=== PATIENT | female | born 1965 | race Hispanic/Latino ===

== ENCOUNTER 2018-01-03 19:13 | Emergency (ER) | payer MEDICARE, MEDICAID ==
--- NOTE | 2018-01-03 19:30 | CT ---
CT BRAIN NONCONTRAST: 01/03/2018 7:20 p.m. HISTORY: A 52-year-old female with dysarthria. This negative stroke alert protocol CT report was called to ER physician, Dr. Núñez, at 7:25 p.m., on 01/03/2018. FINDINGS: There is no midline shift or any other mass effect. There is no evidence of acute intracranial hemor rhage, large cortical infarct, obstructive hydrocephalus, or extraaxial fluid collection. The calvar ium is intact. IMPRESSION: No acute intracranial findings. CODE CR jn [] POS: [facility]
[2018-01-03 20:02] LABS: #Basophils 0.1 thou/uL (0.0-0.2); #Eosinphils 0.1 thou/uL (0.0-0.7); #Lymphocytes 3.4 thou/uL (1.20-3.40); #Monocytes 0.4 thou/uL (0.11-0.59); #Neutrophils 4.5 thou/uL (1.40-6.50); %Basophils 1.5 % (0.0-1.0); %Eosinophils 1.1 % (0.0-10.0); %Monocytes 4.2 % (0.0-10.0); %Neutrophils 53.2 % (42.0-75.0); Hemoglobin 16.5 g/dL (12.0-16.0); Mean Corpuscular HGB CONC 36.3 g/dL (32.0-36.0); Mean Corpuscular Hemoglobin 33.4 pg (27.0-31.0); Mean Corpuscular Volume 92.1 fL (78.0-98.0); Mean Platelet Volume 7.9 fL (7.4-10.4); Platelet Count 200 thou/uL (130-400); RBC Distribution Width 12.6 % (11.5-14.5); Red Blood Cell (RBC) Count 4.92 mill/uL (4.20-5.40); White Blood Cell (WBC) Count 8.4 thou/uL (4.8-10.8)
[2018-01-03 20:08] LABS: Prothrombin Time 13.5 SEC (12.0-14.7)
--- NOTE | 2018-01-03 20:08 | CT ---
CT CERVICAL SPINE NONCONTRAST: HISTORY: A 52-year-old female, status post cervical trauma from fall. FINDINGS: There are no jumped or perched facets. There is no evidence of acute fracture. The vertebral body h eights are maintained. There is no prevertebral soft tissue swelling. There is a stent in the proxi mal portion of the left subclavian artery. IMPRESSION: No evidence of acute fracture or acute traumatic subluxation. jnr POS: [facility]
[2018-01-03 20:09] LABS: PTT 30.7 SEC (22.9-36.1)
--- NOTE | 2018-01-03 20:11 | RAD ---
AP VIEW CHEST: INDICATIONS: Altered mental status. COMPARISON: Prior study dated 11/22/2015. FINDINGS: The lungs are clear. The cardiomediastinal is normal. No acute osseous abnormality is evident. IMPRESSION: No acute cardiopulmonary abnormality. POS: [facility]
[2018-01-03 20:12] LABS: Bilirubin Negative (Negative); Blood, Urine Negative (Negative); Clarity CLEAR (Clear); Glucose, Urine (Dipstick) >=1000 mg/dL (Negative); Leukocyte Trace (Negative); Nitrite Positive (Negative); Protein, Urine (Dipstick) Negative (Neg-Trace); Specific Gravity, Urine 1.022 (1.002-1.036); Urobilinogen 0.2 mg/dL (0.2-1.0); pH, Urine 5.5 (5.0-9.0)
[2018-01-03 20:15] LABS: Bacteria/HPF 4+ HPF (None Seen); Hyaline Casts/LPF 0-3 HYALINE CAST LPF (0-3 Hyaline); RBC/HPF None Seen HPF (0-3); Squamous Epithelial 0-3 HPF (0-3)
[2018-01-03 20:15] LABS: Acetaminophen Less than 6.0 mcg/mL (10.0-30.0); Alcohol Less than 10 mg/dL (Less than 10); Salicylate Less than 8.0 mg/dL (15.0-30.0)
[2018-01-03 20:16] LABS: ALT (SGPT) 37 U/L (8-55); AST (SGOT) 48 U/L (5-34); Albumin 4.4 g/dL (3.5-5.0); Alkaline Phosphatase 205 U/L (40-150); Anion Gap 20 mmol/L (10-20); BUN (Urea Nitrogen) 15 mg/dL (9.8-20.1); Bilirubin, Total 0.8 mg/dL (0.2-1.2); CK (CPK) 166 U/L (29-168); Calc. Creatinine Clearance 0 mL/min (70-130); Calcium 10.2 mg/dL (7.8-10.44); Carbon Dioxide 18 mmol/L (22-29); Chloride 103 mmol/L (98-107); Estimated GFR-MDRD 48; Globulin 4.3 g/dL (2.4-3.5); Glucose 258 mg/dL (70-105); Lipase 29 U/L (8-78); Potassium 3.7 mmol/L (3.5-5.1); Protein, Total 8.7 g/dL (6.0-8.3); Sodium 137 mmol/L (136-145)
[2018-01-03 20:17] LABS: Renal Epithelial None Seen HPF (0-3); Transitional Epithelial NONE SEEN HPF (0-3)
[2018-01-03 20:18] LABS: Troponin I Less than 0.010 ng/mL (< 0.028)
[2018-01-03 20:21] LABS: CKMB 7.2 ng/mL (0-6.6)
[2018-01-03 20:24] LABS: Amphetamine Detected (NotDetected); Barbiturates Screen Not Detected (NotDetected); Benzodiazepine Screen Detected (NotDetected); Cocaine Metabolite Screen Not Detected (NotDetected); Medtox Control Line Valid? VALID (VALID); Medtox Reader # READER 1; Methadone Not Detected (NotDetected); Methamphetamine Not Detected (NotDetected); Opiate Screen Not Detected (NotDetected); Oxycodone Screen Not Detected (NotDetected); Phencyclidine (PCP) Not Detected (NotDetected); THC/Cannabinoid Screen Not Detected (NotDetected); Tricyclic Screen Not Detected (NotDetected)
== END 2018-01-03 21:33 | disposition home or self-care (01) ==
LOC: ERS 19:13
DX: S16.1XXA Strain of muscle, fascia and tendon at neck level, initial encounter (principal); F15.90 Other stimulant use, unspecified, uncomplicated; R55 Syncope and collapse; N39.0 Urinary tract infection, site not specified; E78.5 Hyperlipidemia, unspecified; F31.9 Bipolar disorder, unspecified; F17.210 Nicotine dependence, cigarettes, uncomplicated; E11.9 Type 2 diabetes mellitus without complications; Z79.899 Other long term (current) drug therapy; V89.2XXA Person injured in unspecified motor-vehicle accident, traffic, initial encounter
CPT/HCPCS: 36415; 36416; 51701; 70450; 71045; 72125; 80053; 80306; 80307; 81003; 81015; 82010; 82553; 83690; 83880; 84146; 84443; 84484; 85025; 85610; 85730; 87040; 87149; 93005; A4353

== ENCOUNTER 2018-07-21 14:00 | Outpatient (CLI) | payer MEDICARE, MEDICAID ==
[2018-07-21] MEDS ORDERED: Sodium Chloride 0.9% 15 ML NEB ONE (20:05)
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
== END 2018-07-21 14:01 | disposition home or self-care (01) ==
LOC: WCC 14:00
PROVIDERS: ATTEND Family Medicine
DX: E11.622 Type 2 diabetes mellitus with other skin ulcer (principal); L98.419 Non-pressure chronic ulcer of buttock with unspecified severity; I10 Essential (primary) hypertension; D64.9 Anemia, unspecified; M19.90 Unspecified osteoarthritis, unspecified site; E03.9 Hypothyroidism, unspecified
CPT/HCPCS: 11042; 11045; 99203; A4218; G0463

== ENCOUNTER 2018-07-28 09:49 | Outpatient (CLI) | payer MEDICARE, MEDICAID ==
[~2018-07-28 09:49] MED LIST: Sodium Chloride 0.9% 15 ML NEB ONE
--- NOTE | 2018-07-28 10:52 | PRG ---
DATE OF SERVICE: 07/28/2018 HISTORY: Ms. Aziza Daley is a very pleasant 52-year-old, who presents to the Wound Center for evaluation of an ulceration of the right buttock. The patient previously stated that she had fallen several times over the few weeks prior to her initial presentation to the Wound Center. She stated that she fell into a box and then woke up in the intensive care unit at [facility]. Prior to being seen in the Wound Center, the patient had been receiving assistance with dressing changes by Home Health. The patient was referred to the Wound Center by Dr. Patten on 07/07/2018. After being seen in the Wound Center, the patient was placed on dressing changes of Medihoney and Allevyn. Home Health continues to assist the patient with her dressing changes. PHYSICAL EXAMINATION: VITAL SIGNS: Temperature 97.4, pulse 105, and blood pressure 121/59. Accu-Chek 148. EXTREMITIES: A wound of the right buttock is present, which measures approximately 5.4 x 4.9 cm. The dimensions of the wound at the time of the patient's last visit were approximately 6.0 x 5.5 cm. Granulation tissue is present within the wound margins. Necrotic and nonviable tissue present within the wound margins was debrided with an excisional full-thickness debridement. No purulent drainage is associated with the wound. No erythema of the skin surrounding the wound is present. No maceration of the skin of the periwound is noted. ASSESSMENT AND PLAN: 1. Ulceration of right buttock as described above. Dressing changes of Medihoney and Allevyn will be continued 3 times per week after cleansing and irrigation with the assistance of Home Health. I will see Ms. Daley again in 2 weeks. 2. Diabetes mellitus. The patient's Accu-Chek in clinic today is 148. The patient has been reminded that for optimal wound healing, her blood glucoses should remain below 150. 3. History of hypertension. 4. Anemia. 5. Arthritis. 6. Hypothyroidism. Job ID: [id number]
== END 2018-07-28 09:50 | disposition home or self-care (01) ==
LOC: WCC 09:49
PROVIDERS: ATTEND Family Medicine
DX: E11.622 Type 2 diabetes mellitus with other skin ulcer (principal); L98.419 Non-pressure chronic ulcer of buttock with unspecified severity; I10 Essential (primary) hypertension; M19.90 Unspecified osteoarthritis, unspecified site; D64.9 Anemia, unspecified; E03.9 Hypothyroidism, unspecified
CPT/HCPCS: 11042; 11045; A4218

== ENCOUNTER 2018-08-11 15:14 | Outpatient (CLI) | payer MEDICARE, MEDICAID ==
--- NOTE | 2018-08-11 15:35 | PRG ---
DATE OF SERVICE: 08/11/2018 HISTORY OF PRESENT ILLNESS: Ms. Aziza Daley is a very pleasant 52-year-old, who presents to the Wound Center for evaluation of an ulceration of the right buttock. Previously, the patient stated that she had fallen several times over the few weeks prior to her initial presentation to the Wound Center. She stated that she fell into a box and then woke up in the intensive care unit at [facility]. Prior to being seen in the Wound Center, the patient had been receiving dressing changes with the assistance of Home Health. The patient was referred to the Wound Center by Dr. Patten on 07/07/2018. After being seen in the Wound Center, the patient was placed on dressing changes of Medihoney and Allevyn. Home Health continues to assist the patient with her dressing changes. PHYSICAL EXAMINATION: VITAL SIGNS: Temperature 97.5, pulse 90, respirations 17, blood pressure 134/65, and Accu-Chek 170. EXTREMITIES: Wound of the right buttock is present, which measures approximately 4.5 x 2.5 cm. The dimensions of the wound at the time of the patient's last visit were approximately 5.4 x 4.9 cm. Granulation tissue was present within the wound margins. Necrotic and nonviable tissue present within the wound margins were debrided with an excisional full-thickness debridement. No purulent drainage is associated with the wound. No erythema of the skin surrounding the wound is present. No maceration of the skin of the periwound is noted. ASSESSMENT AND PLAN: 1. Ulceration of right buttock as described above. Dressing changes of Medihoney alginate and Allevyn are to be performed 3 times per week after cleansing and irrigation with the assistance of Home Health. I will see Ms. Daley again in 2 to 3 weeks. 2. Diabetes mellitus. The patient's Accu-Chek in clinic today is 170. The patient has been reminded that for optimal wound healing, her blood glucoses should remain below 150. 3. History of hypertension. 4. Anemia. 5. Arthritis. 6. Hypothyroidism. Job ID: [id number]
[2018-08-11] MEDS ORDERED: Sodium Chloride 0.9% 15 ML NEB ONE (21:30)
== END 2018-08-11 15:15 | disposition home or self-care (01) ==
LOC: WCC 15:14
PROVIDERS: ATTEND Family Medicine
DX: E11.622 Type 2 diabetes mellitus with other skin ulcer (principal); L98.419 Non-pressure chronic ulcer of buttock with unspecified severity; I10 Essential (primary) hypertension; D64.9 Anemia, unspecified; M19.90 Unspecified osteoarthritis, unspecified site; E03.9 Hypothyroidism, unspecified
CPT/HCPCS: A4218

== ENCOUNTER 2019-07-18 08:23 | Outpatient (CLI) | payer MEDICARE, MEDICAID ==
--- NOTE | 2019-07-18 09:20 | RAD ---
FRONTAL RADIOGRAPH OF THE SKULL: DATE: 07/18/2019. HISTORY: Evaluate for a metallic foreign body within the orbit. FINDINGS: Water's view demonstrates no radiopaque metallic foreign body. IMPRESSION: No metallic foreign body overlies either orbit. POS: [facility]
--- NOTE | 2019-07-18 11:16 | MRI ---
BRAIN MRI WITH AND WITHOUT CONTRAST: DATE: 07/18/2019. COMPARISON: None. HISTORY: Episodes of disorientation with sweating, shaking, and body stiffness. These symptoms may be related to seizure activity. TECHNIQUE: Multiplanar, multisequence MR imaging of the brain is provided with and without contrast utilizing a seizure protocol. FINDINGS: The diffusion weighted imaging demonstrates no evidence for acute infarction. There is a mild degree of diffuse cerebral volume loss involving the supratentorial brain parenchyma bilaterally. There are a few subcentimeter scattered foci of increased T2 and FLAIR signal within th e deep and subcortical white matter suggesting a mild degree of small-vessel disease. The regional bone marrow signal intensity appears within normal limits. There is mild hippocampal volume loss bilaterally with no focal asymmetric abnormal area of signal in tensity within the hippocampus on either side. The FLAIR imaging demonstrates no abnormal increased signal within the hippocampus on either side. No hippocampal mass lesion identified. Postcontrast imaging is provided, demonstrating no abnormal enhancement within the brain parenchyma. Imaged paranasal sinuses and mastoid air cells appear well aerated. Arterial flow voids appear gross ly unremarkable on the axial T2 weighted imaging. IMPRESSION: Cerebral volume loss with findings suggesting mild small-vessel disease. No focal abnormality noted. POS: [facility]
[2019-07-18] MEDS ORDERED: Magnevist 469MG/ML 20 ML VIAL ONE (14:52)
== END 2019-07-18 08:24 | disposition home or self-care (01) ==
LOC: BICMRI 08:23
PROVIDERS: ATTEND Specialist
DX: G40.909 Epilepsy, unspecified, not intractable, without status epilepticus (principal); G43.909 Migraine, unspecified, not intractable, without status migrainosus; G93.89 Other specified disorders of brain
CPT/HCPCS: 70210; 70553; 82565; A9579

== ENCOUNTER 2019-11-23 12:18 | Outpatient (CLI) | payer MEDICARE, MEDICAID ==
--- NOTE | 2019-11-28 13:32 | EEG ---
DATE OF SERVICE: 11/23/2019 DESCRIPTION OF THE RECORD: The waking background is 10 Hertz alpha frequency. Photic stimulation was unremarkable. The patient remained awake throughout study. No epileptiform features were present. IMPRESSION: This is a normal awake EEG. Job ID: [id number]
== END 2019-11-23 12:19 | disposition home or self-care (01) ==
LOC: EEG 12:18
PROVIDERS: ATTEND Psychiatry & Neurology Neurology
DX: G31.1 Senile degeneration of brain, not elsewhere classified (principal)
CPT/HCPCS: 95816

== ENCOUNTER 2020-07-17 08:49 | Inpatient (IN) | payer MEDICARE, MEDICAID, OTHER ==
[2020-07-17] MEDS ORDERED: Fentanyl 100 MCG/2 ML VIAL ONE ×3 (09:11→17:22)
[2020-07-17] MEDS ORDERED: Glycopyrrolate 0.2 MG/ML 5 ML SYRINGE ONE (09:33)
[2020-07-17] MEDS ORDERED: ePHEDrine 50 MG/ML VIAL ONE (09:33)
[2020-07-17] MEDS ORDERED: Lidocaine 1% PF 5 ML VIAL ONE (09:33)
[2020-07-17] MEDS ORDERED: PHENYLEPHRINE-NS 100 MCG/ML 10 ML SYRINGE ONE ×2 (09:33→15:05)
[2020-07-17] MEDS ORDERED: Dexamethasone 20 MG/5 ML VIAL ONE (09:33)
[2020-07-17] MEDS ORDERED: Calcium Chloride 1 GM/10 ML Abboject SYRINGE ONE (09:33)
[2020-07-17] MEDS ORDERED: Ondansetron PF 4 MG/2 ML Vial ONE (09:33)
[2020-07-17] MEDS ORDERED: Rocuronium Bromide 10 MG/ML (10ML VIAL) ONE (09:33)
[2020-07-17] MEDS ORDERED: PROPOFOL 200 MG/20 ML VIAL ONE (09:33)
[2020-07-17] MEDS ORDERED: Morphine 4 MG/ML VIAL ONE (09:39)
[2020-07-17 10:21] LABS: Bilirubin Negative (Negative); Blood, Urine Negative (Negative); Clarity Clear (Clear); Glucose, Urine (Dipstick) Greater than 1000 mg/dL (Negative); Ketone, Urine Negative (Negative); Leukocyte Negative Leu/uL (Negative); Nitrite Negative (Negative); Protein, Urine (Dipstick) Negative (Neg-Trace); Specific Gravity, Urine 1.038 (1.002-1.036); Urobilinogen Normal mg/dL (Less than 2)
[2020-07-17 10:26] LABS: #Basophils 0.1 thou/uL (0.0-0.2); #Eosinphils 0.1 thou/uL (0.0-0.7); #Lymphocytes 2.1 thou/uL (1.20-3.40); #Monocytes 0.3 thou/uL (0.11-0.59); #Neutrophils 7.3 thou/uL (1.40-6.50); %Basophils 0.9 % (0.0-1.0); %Eosinophils 0.8 % (0.0-10.0); %Lymphocytes 21.1 % (21.0-51.0); %Monocytes 3.3 % (0.0-10.0); %Neutrophils 73.8 % (42.0-75.0); Mean Corpuscular HGB CONC 32.7 g/dL (32.0-36.0); Mean Corpuscular Hemoglobin 31.2 pg (27.0-31.0); Mean Corpuscular Volume 95.3 fL (78.0-98.0); Mean Platelet Volume 8.4 fL (7.4-10.4); Platelet Count 146 thou/uL (130-400); RBC Distribution Width 12.8 % (11.5-14.5); Red Blood Cell (RBC) Count 4.49 mill/uL (4.20-5.40); White Blood Cell (WBC) Count 9.9 thou/uL (4.8-10.8)
[2020-07-17 10:29] LABS: INR-International Normal Ratio 1.1; PTT 30.7 sec (22.9-36.1); Prothrombin Time 14.5 sec (12.0-14.7)
[2020-07-17 10:41] LABS: ALT (SGPT) 24 U/L (8-55); AST (SGOT) 20 U/L (5-34); Albumin 3.9 g/dL (3.5-5.0); Alkaline Phosphatase 113 U/L (40-110); Anion Gap 13 mmol/L (10-20); BUN (Urea Nitrogen) 18 mg/dL (9.8-20.1); Bilirubin, Total 0.6 mg/dL (0.2-1.2); Calc. Creatinine Clearance 0 mL/min (70-130); Calcium 9.1 mg/dL (7.8-10.44); Carbon Dioxide 24 mmol/L (22-29); Chloride 101 mmol/L (98-107); Glucose 178 mg/dL (70-105); Potassium 3.4 mmol/L (3.5-5.1); Protein, Total 6.9 g/dL (6.0-8.3); Sodium 135 mmol/L (136-145)
[2020-07-17] MEDS ORDERED: Bupivacaine PF 0.5% 30 ML VIAL ONE (12:46)
[2020-07-17] MEDS ORDERED: Lidocaine 1% w/Epinephrine 1:100K 20 ML VIAL ONE (12:46)
[2020-07-17 13:06] LABS: SARS-CoV-2 NAA Rapid Test Not Detected (NotDetected)
[2020-07-17] MEDS ORDERED: Cyclobenzaprine 10 MG TAB PO PRN (13:18)
[2020-07-17] MEDS ORDERED: Ondansetron ODT 4 MG TAB PO PRN (13:18)
[2020-07-17] MEDS ORDERED: Dextrose 5% in Water 1,000 ML IV PRN (13:19)
[2020-07-17] MEDS ORDERED: HumaLOG 300 UNITS/3 ML VIAL SC PRN (13:19)
[2020-07-17] MEDS ORDERED: Lorazepam 2 MG/ML VIAL SLOW IVP PRN (13:19)
[2020-07-17] MEDS ORDERED: Dextrose 50% Abboject 50 ML SYRINGE SLOW IVP PRN (13:19)
[2020-07-17] MEDS ORDERED: SUGAMMADEX SODIUM 200 MG/2 ML VIAL ONE (16:08)
[2020-07-17] MEDS ORDERED: Naloxone HCl 0.4 mg/ml Vial ONE (16:13)
[2020-07-17] MEDS ORDERED: Ondansetron HCl/PF 4 MG/2 ML Vial IVP PRN (16:30)
[2020-07-17] MEDS ORDERED: Promethazine HCl 25 MG/ML VIAL IM PRN (16:30)
[2020-07-17] MEDS ORDERED: Promethazine HCl 25 MG/ML VIAL SLOW IVP PRN (16:30)
[2020-07-17] MEDS: Acetaminophen 325 MG TAB PO SCH ×2 (20:45→23:03)
[2020-07-17] MEDS: traMADol HCl 50 MG TAB PO PRN (20:45)
[2020-07-17] MEDS: Lactated Ringer's 1,000 ML IV SCH (20:46)
[2020-07-17] MEDS: Senokot S 8.6-50 MG TAB PO SCH (20:46)
[2020-07-17] MEDS: CEFAZOLIN 2 GM in Premix Bag 1 BAG IVPB SCH (20:47)
[2020-07-17] MEDS ORDERED: Zolpidem Tartrate 5 MG TAB PO SCH (21:00)
[2020-07-17] MEDS ORDERED: Famotidine/PF 20 mg/2ml Vial SLOW IVP SCH (21:00)
[2020-07-17 23:58] VITALS: BMI 33.0
[2020-07-18] MEDS: traMADol HCl 50 MG TAB PO PRN (02:54)
[2020-07-18] MEDS: CEFAZOLIN 2 GM in Premix Bag 1 BAG IVPB SCH ×2 (05:35→14:30)
[2020-07-18] MEDS: Acetaminophen 325 MG TAB PO SCH ×4 (05:36→23:01)
[2020-07-18] MEDS: Lactated Ringer's 1,000 ML IV SCH (05:36)
[2020-07-18 05:48] LABS: #Lymphocytes 1.3 thou/uL (1.20-3.40); #Monocytes 0.6 thou/uL (0.11-0.59); #Neutrophils 11.3 thou/uL (1.40-6.50); %Basophils 0.1 % (0.0-1.0); %Eosinophils 0.2 % (0.0-10.0); %Monocytes 4.5 % (0.0-10.0); %Neutrophils 85.2 % (42.0-75.0); Hemoglobin 11.8 g/dL (12.0-16.0); Mean Corpuscular HGB CONC 33.6 g/dL (32.0-36.0); Mean Corpuscular Hemoglobin 32.2 pg (27.0-31.0); Mean Corpuscular Volume 95.8 fL (78.0-98.0); Mean Platelet Volume 8.5 fL (7.4-10.4); Platelet Count 130 thou/uL (130-400); RBC Distribution Width 12.7 % (11.5-14.5); Red Blood Cell (RBC) Count 3.67 mill/uL (4.20-5.40); White Blood Cell (WBC) Count 13.2 thou/uL (4.8-10.8)
[2020-07-18 06:11] LABS: Anion Gap 12 mmol/L (10-20); BUN (Urea Nitrogen) 14 mg/dL (9.8-20.1); Calc. Creatinine Clearance 75 mL/min (70-130); Calcium 8.7 mg/dL (7.8-10.44); Carbon Dioxide 23 mmol/L (22-29); Chloride 104 mmol/L (98-107); Glucose 211 mg/dL (70-105); Magnesium 1.5 mg/dL (1.6-2.6); Phosphorus 3.9 mg/dL (2.3-4.7); Potassium 4.1 mmol/L (3.5-5.1); Sodium 135 mmol/L (136-145)
[2020-07-18] MEDS ORDERED: Hydrocortisone Sod Succ/PF 100 mg/2 ml Vial IVP SCH (07:14)
[2020-07-18] MEDS ORDERED: Magnesium Sulfate 3 GM in Sodium Chloride 0.9% 100 ML IVPB SCH (07:30)
[2020-07-18] MEDS: Aspirin 81 mg Enteric Coated Tablet PO SCH ×2 (08:31→20:02)
[2020-07-18] MEDS: Famotidine 20 MG TAB PO SCH ×2 (08:31→20:02)
[2020-07-18] MEDS: Senokot S 8.6-50 MG TAB PO SCH ×2 (08:31→20:02)
[2020-07-18] MEDS: Aripiprazole 15 MG TAB PO SCH (08:32)
[2020-07-18] MEDS ORDERED: clonazePAM 1 MG TAB PO SCH (09:00)
[2020-07-18] MEDS: Hydrocortisone Sod Succ/PF 100 mg/2 ml Vial IVP SCH ×2 (14:29→22:58)
[2020-07-18] MEDS: Ferrous Sulfate 325 MG TAB PO SCH (17:36)
[2020-07-18] MEDS: clonazePAM 1 MG TAB PO SCH (20:02)
[2020-07-18] MEDS ORDERED: FLU VACC QS2020-21(6MOS UP)/PF 60 MCG/0.5 ML SYRINGE IM ONE (21:00)
[2020-07-18] MEDS: VYZULTA EA EYE SCH (21:31)
[2020-07-19] MEDS: Levothyroxine 150 MCG TAB PO SCH (05:25)
[2020-07-19] MEDS: Hydrocortisone Sod Succ/PF 100 mg/2 ml Vial IVP SCH (05:25)
[2020-07-19] MEDS: Acetaminophen 325 MG TAB PO SCH ×3 (05:25→16:37)
[2020-07-19] MEDS ORDERED: Magnesium Sulfate 2 GM in Sodium Chloride 0.9% 100 ML IVPB SCH (08:15)
[2020-07-19] MEDS: Aspirin 81 mg Enteric Coated Tablet PO SCH ×2 (08:31→21:00)
[2020-07-19] MEDS: Famotidine 20 MG TAB PO SCH ×2 (08:31→21:00)
[2020-07-19] MEDS: Senokot S 8.6-50 MG TAB PO SCH ×2 (08:31→20:53)
[2020-07-19] MEDS: Ascorbic Acid 500 mg Chewable Tablet PO SCH (08:31)
[2020-07-19] MEDS: Aripiprazole 15 MG TAB PO SCH (08:31)
[2020-07-19] MEDS: Ferrous Sulfate 325 MG TAB PO SCH ×2 (08:32→16:38)
[2020-07-19] MEDS: Polyethylene Glycol 3350 17 GM Packet PO SCH (09:08)
[2020-07-19] MEDS: Bisacodyl 10 MG SUPP PR SCH (09:08)
[2020-07-19] MEDS: clonazePAM 1 MG TAB PO SCH (21:00)
[2020-07-19] MEDS: VYZULTA EA EYE SCH (21:05)
[2020-07-20] MEDS: Acetaminophen 325 MG TAB PO SCH ×4 (00:26→17:14)
[2020-07-20] MEDS: Levothyroxine 150 MCG TAB PO SCH (06:45)
[2020-07-20] MEDS: Aspirin 81 mg Enteric Coated Tablet PO SCH ×2 (08:56→20:06)
[2020-07-20] MEDS: Famotidine 20 MG TAB PO SCH ×2 (08:56→20:06)
[2020-07-20] MEDS: Aripiprazole 15 MG TAB PO SCH (08:56)
[2020-07-20] MEDS: Polyethylene Glycol 3350 17 GM Packet PO SCH (08:56)
[2020-07-20] MEDS: Senokot S 8.6-50 MG TAB PO SCH ×2 (08:56→20:18)
[2020-07-20] MEDS: Ascorbic Acid 500 mg Chewable Tablet PO SCH (08:56)
[2020-07-20] MEDS: Bisacodyl 10 MG SUPP PR SCH (08:56)
[2020-07-20] MEDS: Ferrous Sulfate 325 MG TAB PO SCH ×2 (08:56→17:15)
[2020-07-20] MEDS: clonazePAM 1 MG TAB PO SCH (20:05)
[2020-07-20] MEDS: VYZULTA EA EYE SCH (20:06)
[2020-07-21] MEDS: Acetaminophen 325 MG TAB PO SCH ×3 (01:08→11:27)
[2020-07-21] MEDS: Levothyroxine 150 MCG TAB PO SCH (06:02)
[2020-07-21] MEDS: Ferrous Sulfate 325 MG TAB PO SCH (08:36)
[2020-07-21] MEDS: Aspirin 81 mg Enteric Coated Tablet PO SCH (08:36)
[2020-07-21] MEDS: Ascorbic Acid 500 mg Chewable Tablet PO SCH (08:36)
[2020-07-21] MEDS: Famotidine 20 MG TAB PO SCH (08:36)
[2020-07-21] MEDS: Bisacodyl 10 MG SUPP PR SCH (08:38)
[2020-07-21] MEDS: Senokot S 8.6-50 MG TAB PO SCH (08:38)
[2020-07-21] MEDS: Polyethylene Glycol 3350 17 GM Packet PO SCH (08:38)
[2020-07-21] MEDS: Aripiprazole 15 MG TAB PO SCH (10:26)
[2020-07-21 16:12] VITALS: BP 105/70; TEMP 97.6
== END 2020-07-21 17:33 | disposition home health service (06) | DRG 481 ==
LOC: ERS 08:49 → SDC 16:20 → SJJU 16:21
PROVIDERS: ADMIT Specialist; ATTEND Specialist
PROC: 0QS806Z Reposition Right Femoral Shaft with Intramedullary Internal Fixation Device, Open Approach (ICD-10-PCS; principal; 2020-07-17)
PROC: 0QPB04Z Removal of Internal Fixation Device from Right Lower Femur, Open Approach (ICD-10-PCS; 2020-07-17)
DX: S72.301A Unspecified fracture of shaft of right femur, initial encounter for closed fracture (principal); M97.01XA Periprosthetic fracture around internal prosthetic right hip joint, initial encounter; E87.1 Hypo-osmolality and hyponatremia; D62 Acute posthemorrhagic anemia; Z20.822 Contact with and (suspected) exposure to COVID-19; I10 Essential (primary) hypertension; E03.9 Hypothyroidism, unspecified; M19.90 Unspecified osteoarthritis, unspecified site; F17.210 Nicotine dependence, cigarettes, uncomplicated; E66.9 Obesity, unspecified; E11.65 Type 2 diabetes mellitus with hyperglycemia; W18.30XA Fall on same level, unspecified, initial encounter; Y92.009 Unspecified place in unspecified non-institutional (private) residence as the place of occurrence of the external cause; Z68.33 Body mass index [BMI] 33.0-33.9, adult; Z28.21 Immunization not carried out because of patient refusal; Z79.899 Other long term (current) drug therapy; Z79.82 Long term (current) use of aspirin; Z79.4 Long term (current) use of insulin
CPT/HCPCS: 0240U; 36415; 51701; 70450; 71045; 76000; 80048; 80053; 81003; 82533; 83735; 84100; 84443; 85025; 85610; 85730; 93005; 96372; 96374; C1713; J0690; J1100; J1720; J2060; J2270; J2310; J2405; J2704; J3010; J3475; J3490; S0020; S0028

== ENCOUNTER 2020-10-23 21:29 | Inpatient (IN) | payer MEDICARE, MEDICAID ==
[2020-10-23 22:22] LABS: #Basophils 0.1 thou/uL (0.0-0.2); #Eosinphils 0.2 thou/uL (0.0-0.7); #Lymphocytes 3.6 thou/uL (1.20-3.40); #Monocytes 0.4 thou/uL (0.11-0.59); #Neutrophils 6.3 thou/uL (1.40-6.50); %Basophils 0.9 % (0.0-1.0); %Eosinophils 1.6 % (0.0-10.0); %Lymphocytes 33.9 % (21.0-51.0); %Monocytes 3.9 % (0.0-10.0); %Neutrophils 59.8 % (42.0-75.0); Hemoglobin 13.6 g/dL (12.0-16.0); Mean Corpuscular HGB CONC 31.9 g/dL (32.0-36.0); Mean Corpuscular Hemoglobin 30.6 pg (27.0-31.0); Mean Corpuscular Volume 96.1 fL (78.0-98.0); Mean Platelet Volume 8.4 fL (7.4-10.4); Platelet Count 179 thou/uL (130-400); RBC Distribution Width 13.5 % (11.5-14.5); Red Blood Cell (RBC) Count 4.44 mill/uL (4.20-5.40); White Blood Cell (WBC) Count 10.5 thou/uL (4.8-10.8)
[2020-10-23 22:34] LABS: INR-International Normal Ratio 1.1; Prothrombin Time 13.8 sec (12.0-14.7)
[2020-10-23 22:42] LABS: ALT (SGPT) 20 U/L (8-55); AST (SGOT) 36 U/L (5-34); Albumin 4.1 g/dL (3.5-5.0); Alkaline Phosphatase 171 U/L (40-110); Anion Gap 15 mmol/L (10-20); BUN (Urea Nitrogen) 17 mg/dL (9.8-20.1); Bilirubin, Total 0.5 mg/dL (0.2-1.2); Calc. Creatinine Clearance 0 mL/min (70-130); Calcium 9.8 mg/dL (7.8-10.44); Carbon Dioxide 23 mmol/L (22-29); Chloride 98 mmol/L (98-107); Globulin 3.1 g/dL (2.4-3.5); Glucose 420 mg/dL (70-105); Lipase 50 U/L (8-78); Potassium 3.8 mmol/L (3.5-5.1); Protein, Total 7.2 g/dL (6.0-8.3); Sodium 132 mmol/L (136-145)
[2020-10-24] MEDS ORDERED: Vancomycin 1 GM/200 ML BAG ONE (00:30)
[2020-10-24] MEDS ORDERED: Cefepime 2 GM VIAL ONE (00:30)
[2020-10-24 01:15] LABS: Lactic Acid 2.4 mmol/L (0.5-2.2)
[2020-10-24 01:34] LABS: Actual Bicarbonate (HCO3v) 22 mEq/L (22-28); Analyzer IN Cardio ER; Calcium, Ionized (venous) 1.11 mmol/L (1.16-1.32); Chloride (VBG) 105 mmol/L (98-106); Hemoglobin (Hb) 14.1 g/dL (11.7-16.0); Potassium (VBG) 3.64 mmol/L (3.70-5.30); Sodium 138.4 mmol/L (133-146); pH (venous) 7.31 (7.32-7.43)
[2020-10-24 01:36] LABS: Bilirubin Negative (Negative); Blood, Urine Negative (Negative); Clarity Clear (Clear); Glucose, Urine (Dipstick) Greater than 1000 mg/dL (Negative); Ketone, Urine Negative (Negative); Leukocyte Negative Leu/uL (Negative); Nitrite Negative (Negative); Protein, Urine (Dipstick) Negative (Neg-Trace); Specific Gravity, Urine 1.008 (1.002-1.036); Urobilinogen Normal mg/dL (Less than 2); pH, Urine 5.5 (5.0-9.0)
[2020-10-24] MEDS ORDERED: Acetaminophen 325 MG TAB PO PRN (02:45)
[2020-10-24] MEDS ORDERED: Ondansetron ODT 4 MG TAB SL PRN (02:45)
[2020-10-24] MEDS ORDERED: Ondansetron PF 4 MG/2 ML Vial IVP PRN (02:45)
[2020-10-24 03:12] VITALS: BMI 30.9
[2020-10-24 06:01] LABS: #Eosinphils 0.2 thou/uL (0.0-0.7); #Lymphocytes 2.1 thou/uL (1.20-3.40); #Monocytes 0.4 thou/uL (0.11-0.59); %Basophils 0.6 % (0.0-1.0); %Eosinophils 2.9 % (0.0-10.0); %Monocytes 5.7 % (0.0-10.0); %Neutrophils 59.8 % (42.0-75.0); Hemoglobin 13.1 g/dL (12.0-16.0); Mean Corpuscular HGB CONC 32.8 g/dL (32.0-36.0); Mean Corpuscular Hemoglobin 31.5 pg (27.0-31.0); Mean Corpuscular Volume 95.8 fL (78.0-98.0); Mean Platelet Volume 8.2 fL (7.4-10.4); Platelet Count 133 thou/uL (130-400); RBC Distribution Width 13.5 % (11.5-14.5); Red Blood Cell (RBC) Count 4.15 mill/uL (4.20-5.40); White Blood Cell (WBC) Count 6.7 thou/uL (4.8-10.8)
[2020-10-24] MEDS ORDERED: Dextrose 50% Abboject 50 ML SYRINGE IVP PRN (09:00)
[2020-10-24] MEDS ORDERED: Dextrose 5% in Water 1,000 ML IV PRN (09:00)
[2020-10-24] MEDS: Cefepime 2 GM in Sodium Chloride 0.9% 100 ML IVPB SCH ×2 (10:32→18:18)
[2020-10-24] MEDS: Bupropion 150 MG XL TAB PO SCH (10:33)
[2020-10-24] MEDS: clonazePAM 1 MG TAB PO SCH ×2 (10:33→20:30)
[2020-10-24] MEDS: Enoxaparin Sodium 30 MG/0.3 ML SYRINGE SC SCH (10:33)
[2020-10-24] MEDS: Sodium Chloride 0.9% 1,000 ML IV SCH ×2 (10:34→22:37)
[2020-10-24] MEDS: Vancomycin HCl 500 MG in Sodium Chloride 0.9% 100 ML IVPB SCH (10:34)
[2020-10-24 11:00] LABS: SARS-CoV-2 PCR by NAA Not Detected (NotDetected)
[2020-10-24] MEDS: Buprenorphine 8mg/Naloxone 2mg per 1 FILM SL SCH ×2 (12:10→22:37)
[2020-10-24] MEDS: Lantus 1000 UNITS/10 ML VIAL SC SCH (12:13)
[2020-10-24] MEDS ORDERED: Ondansetron HCl/PF 8 MG in Sodium Chloride 0.9% 50 ML IVPB PRN (16:27)
[2020-10-24] MEDS ORDERED: Ondansetron HCl/PF 8 MG in Sodium Chloride 0.9% 50 ML IVPB SCH (16:30)
[2020-10-24] MEDS ORDERED: NIFEdipine XL 30 MG TAB PO SCH (20:00)
[2020-10-24] MEDS: Aripiprazole 15 MG TAB PO SCH (20:29)
[2020-10-24] MEDS: Atorvastatin Calcium 40 MG TAB PO SCH (20:30)
[2020-10-25] MEDS: Cefepime 2 GM in Sodium Chloride 0.9% 100 ML IVPB SCH ×3 (01:58→17:51)
[2020-10-25] MEDS: Sodium Chloride 0.9% 1,000 ML IV SCH ×3 (05:15→23:30)
[2020-10-25] MEDS: Levothyroxine Sodium 100 MCG TAB PO SCH (05:15)
[2020-10-25 05:40] LABS: #Eosinphils 0.1 thou/uL (0.0-0.7); #Lymphocytes 1.8 thou/uL (1.20-3.40); #Monocytes 0.4 thou/uL (0.11-0.59); #Neutrophils 4.4 thou/uL (1.40-6.50); %Basophils 0.7 % (0.0-1.0); %Eosinophils 1.6 % (0.0-10.0); %Lymphocytes 27.2 % (21.0-51.0); %Monocytes 5.3 % (0.0-10.0); %Neutrophils 65.2 % (42.0-75.0); Hemoglobin 13.5 g/dL (12.0-16.0); Mean Corpuscular HGB CONC 33.5 g/dL (32.0-36.0); Mean Corpuscular Hemoglobin 31.7 pg (27.0-31.0); Mean Corpuscular Volume 94.9 fL (78.0-98.0); Mean Platelet Volume 8.1 fL (7.4-10.4); Platelet Count 117 thou/uL (130-400); RBC Distribution Width 13.5 % (11.5-14.5); Red Blood Cell (RBC) Count 4.24 mill/uL (4.20-5.40); White Blood Cell (WBC) Count 6.7 thou/uL (4.8-10.8)
[2020-10-25 05:41] LABS: Hemoglobin A1c 8.9 % (4.0-6.0)
[2020-10-25 06:02] LABS: Anion Gap 13 mmol/L (10-20); BUN (Urea Nitrogen) 8 mg/dL (9.8-20.1); Calc. Creatinine Clearance 70 mL/min (70-130); Calcium 9.1 mg/dL (7.8-10.44); Carbon Dioxide 24 mmol/L (22-29); Cardiac Risk 4.3 (Less than 4.5); Chloride 105 mmol/L (98-107); Cholesterol 169 mg/dl (< 200 Desired); Glucose 193 mg/dL (70-105); HDL Cholesterol 39 mg/dL (>60 Neg Risk); LDL Cholesterol, Calculated 83 mg/dL; Potassium 3.9 mmol/L (3.5-5.1); Sodium 138 mmol/L (136-145); Triglycerides 236 mg/dL (Less than 150)
[2020-10-25] MEDS: Insulin Regular 300 UNITS/3 ML VIAL SC PRN ×3 (06:24→21:13)
[2020-10-25] MEDS: Empagliflozin 25 MG TAB PO SCH (09:40)
[2020-10-25] MEDS: Vancomycin HCl 500 MG in Sodium Chloride 0.9% 100 ML IVPB SCH (09:41)
[2020-10-25] MEDS: NIFEdipine XL 30 MG TAB PO SCH (09:43)
[2020-10-25] MEDS: Ramipril 5 MG CAP PO SCH ×2 (09:46→23:35)
[2020-10-25] MEDS: Bupropion 150 MG XL TAB PO SCH (09:47)
[2020-10-25] MEDS: Lantus 1000 UNITS/10 ML VIAL SC SCH (09:47)
[2020-10-25] MEDS: clonazePAM 1 MG TAB PO SCH ×2 (09:47→21:12)
[2020-10-25] MEDS: Enoxaparin Sodium 30 MG/0.3 ML SYRINGE SC SCH (09:47)
[2020-10-25] MEDS: Aspirin Chewable 81 MG TAB PO SCH (09:47)
[2020-10-25] MEDS: Buprenorphine 8mg/Naloxone 2mg per 1 FILM SL SCH ×2 (10:04→21:10)
[2020-10-25] MEDS ORDERED: Sodium Chloride 0.9% 250 ML IV SCH (16:00)
[2020-10-25] MEDS: Aripiprazole 15 MG TAB PO SCH (21:12)
[2020-10-25] MEDS: Atorvastatin Calcium 40 MG TAB PO SCH (21:12)
[2020-10-26] MEDS: Cefepime 2 GM in Sodium Chloride 0.9% 100 ML IVPB SCH ×2 (02:06→09:59)
[2020-10-26 05:26] LABS: #Eosinphils 0.1 thou/uL (0.0-0.7); #Lymphocytes 0.7 thou/uL (1.20-3.40); #Monocytes 0.1 thou/uL (0.11-0.59); #Neutrophils 10.9 thou/uL (1.40-6.50); %Basophils 0.2 % (0.0-1.0); %Monocytes 1.2 % (0.0-10.0); %Neutrophils 91.7 % (42.0-75.0); Mean Corpuscular HGB CONC 33.6 g/dL (32.0-36.0); Mean Corpuscular Hemoglobin 32.8 pg (27.0-31.0); Mean Corpuscular Volume 97.6 fL (78.0-98.0); Mean Platelet Volume 8.3 fL (7.4-10.4); Platelet Count 129 thou/uL (130-400); RBC Distribution Width 13.9 % (11.5-14.5); Red Blood Cell (RBC) Count 3.97 mill/uL (4.20-5.40); White Blood Cell (WBC) Count 11.9 thou/uL (4.8-10.8)
[2020-10-26] MEDS: Levothyroxine Sodium 100 MCG TAB PO SCH (05:35)
[2020-10-26] MEDS: Insulin Regular 300 UNITS/3 ML VIAL SC PRN ×2 (05:35→12:14)
[2020-10-26] MEDS: Sodium Chloride 0.9% 1,000 ML IV SCH ×2 (05:42→17:00)
[2020-10-26 05:47] LABS: Anion Gap 14 mmol/L (10-20); BUN (Urea Nitrogen) 19 mg/dL (9.8-20.1); Calc. Creatinine Clearance 44 mL/min (70-130); Calcium 7.9 mg/dL (7.8-10.44); Carbon Dioxide 21 mmol/L (22-29); Chloride 107 mmol/L (98-107); Glucose 206 mg/dL (70-105); Sodium 138 mmol/L (136-145)
[2020-10-26] MEDS: Empagliflozin 25 MG TAB PO SCH (09:40)
[2020-10-26] MEDS: Bupropion 150 MG XL TAB PO SCH (09:40)
[2020-10-26] MEDS: Aspirin Chewable 81 MG TAB PO SCH (09:40)
[2020-10-26] MEDS: Ramipril 5 MG CAP PO SCH (09:40)
[2020-10-26] MEDS: Buprenorphine 8mg/Naloxone 2mg per 1 FILM SL SCH (09:41)
[2020-10-26] MEDS: clonazePAM 1 MG TAB PO SCH (09:41)
[2020-10-26] MEDS: Lantus 1000 UNITS/10 ML VIAL SC SCH (09:42)
[2020-10-26] MEDS: Enoxaparin Sodium 30 MG/0.3 ML SYRINGE SC SCH (09:42)
[2020-10-26] MEDS: NIFEdipine XL 30 MG TAB PO SCH (09:44)
[2020-10-26] MEDS: Vancomycin HCl 500 MG in Sodium Chloride 0.9% 100 ML IVPB SCH (09:59)
[2020-10-26] MEDS ORDERED: Iopamidol-370 76% 500 ML 1 ML ONE (11:26)
[2020-10-26 12:26] LABS: Vancomycin, Trough 8.2 ug/mL
[2020-10-26] MEDS ORDERED: MEROPENEM 1 GM/50 ML 1 GM in Premix Bag 1 BAG IVPB SCH (12:45)
[2020-10-26] MEDS: Atorvastatin Calcium 40 MG TAB PO SCH (21:12)
[2020-10-26] MEDS: MEROPENEM 1 GM/50 ML 1 GM in Premix Bag 1 BAG IVPB SCH (21:12)
[2020-10-26] MEDS: Aripiprazole 15 MG TAB PO SCH (21:12)
[2020-10-27] MEDS: Sodium Chloride 0.9% 1,000 ML IV SCH ×3 (05:39→20:13)
[2020-10-27] MEDS: Levothyroxine Sodium 100 MCG TAB PO SCH (05:39)
[2020-10-27 06:05] LABS: #Eosinphils 0.1 thou/uL (0.0-0.7); #Lymphocytes 1.8 thou/uL (1.20-3.40); #Monocytes 0.5 thou/uL (0.11-0.59); #Neutrophils 5.9 thou/uL (1.40-6.50); %Basophils 0.4 % (0.0-1.0); %Eosinophils 1.3 % (0.0-10.0); %Lymphocytes 22.1 % (21.0-51.0); %Monocytes 5.4 % (0.0-10.0); %Neutrophils 70.7 % (42.0-75.0); Hemoglobin 12.2 g/dL (12.0-16.0); Mean Corpuscular HGB CONC 34.1 g/dL (32.0-36.0); Mean Corpuscular Hemoglobin 32.7 pg (27.0-31.0); Mean Platelet Volume 8.4 fL (7.4-10.4); Platelet Count 114 thou/uL (130-400); RBC Distribution Width 13.9 % (11.5-14.5); Red Blood Cell (RBC) Count 3.72 mill/uL (4.20-5.40); White Blood Cell (WBC) Count 8.3 thou/uL (4.8-10.8)
[2020-10-27 06:14] LABS: Anion Gap 13 mmol/L (10-20); BUN (Urea Nitrogen) 15 mg/dL (9.8-20.1); Calc. Creatinine Clearance 65 mL/min (70-130); Calcium 7.7 mg/dL (7.8-10.44); Carbon Dioxide 20 mmol/L (22-29); Chloride 107 mmol/L (98-107); Glucose 74 mg/dL (70-105); Potassium 3.7 mmol/L (3.5-5.1); Sodium 136 mmol/L (136-145)
[2020-10-27] MEDS: Enoxaparin Sodium 30 MG/0.3 ML SYRINGE SC SCH (08:38)
[2020-10-27] MEDS: NIFEdipine XL 30 MG TAB PO SCH (08:39)
[2020-10-27] MEDS: Aspirin Chewable 81 MG TAB PO SCH (08:39)
[2020-10-27] MEDS: Lantus 1000 UNITS/10 ML VIAL SC SCH (08:39)
[2020-10-27] MEDS: MEROPENEM 1 GM/50 ML 1 GM in Premix Bag 1 BAG IVPB SCH ×2 (08:39→20:12)
[2020-10-27] MEDS: Bupropion 150 MG XL TAB PO SCH (08:39)
[2020-10-27] MEDS: Empagliflozin 25 MG TAB PO SCH (08:40)
[2020-10-27] MEDS ORDERED: Vancomycin 1 GM in Premix Bag 1 BAG IVPB SCH (10:00)
[2020-10-27] MEDS: Atorvastatin Calcium 40 MG TAB PO SCH (20:12)
[2020-10-27] MEDS: Aripiprazole 15 MG TAB PO SCH (20:12)
[2020-10-28] MEDS ORDERED: Calcium Carbonate 500 MG ChewTAB PO PRN (02:08)
[2020-10-28] MEDS: Levothyroxine Sodium 100 MCG TAB PO SCH (05:47)
[2020-10-28 06:34] LABS: #Eosinphils 0.1 thou/uL (0.0-0.7); #Lymphocytes 2.2 thou/uL (1.20-3.40); #Monocytes 0.4 thou/uL (0.11-0.59); #Neutrophils 5.6 thou/uL (1.40-6.50); %Basophils 0.6 % (0.0-1.0); %Eosinophils 1.6 % (0.0-10.0); %Lymphocytes 26.3 % (21.0-51.0); %Monocytes 4.5 % (0.0-10.0); %Neutrophils 67.1 % (42.0-75.0); Mean Corpuscular HGB CONC 33.1 g/dL (32.0-36.0); Mean Corpuscular Hemoglobin 31.7 pg (27.0-31.0); Mean Corpuscular Volume 95.7 fL (78.0-98.0); Mean Platelet Volume 8.2 fL (7.4-10.4); Platelet Count 126 thou/uL (130-400); RBC Distribution Width 13.8 % (11.5-14.5); Red Blood Cell (RBC) Count 4.12 mill/uL (4.20-5.40); White Blood Cell (WBC) Count 8.3 thou/uL (4.8-10.8)
[2020-10-28 07:01] LABS: Anion Gap 12 mmol/L (10-20); BUN (Urea Nitrogen) 7 mg/dL (9.8-20.1); Calc. Creatinine Clearance 84 mL/min (70-130); Calcium 8.7 mg/dL (7.8-10.44); Carbon Dioxide 24 mmol/L (22-29); Chloride 106 mmol/L (98-107); Glucose 75 mg/dL (70-105); Potassium 3.4 mmol/L (3.5-5.1); Sodium 139 mmol/L (136-145)
[2020-10-28] MEDS: Enoxaparin Sodium 30 MG/0.3 ML SYRINGE SC SCH (08:50)
[2020-10-28] MEDS: Lantus 1000 UNITS/10 ML VIAL SC SCH (08:52)
[2020-10-28] MEDS: NIFEdipine XL 30 MG TAB PO SCH (08:52)
[2020-10-28] MEDS: MEROPENEM 1 GM/50 ML 1 GM in Premix Bag 1 BAG IVPB SCH ×2 (08:53→17:12)
[2020-10-28] MEDS: Empagliflozin 25 MG TAB PO SCH (08:53)
[2020-10-28] MEDS: Aspirin Chewable 81 MG TAB PO SCH (08:53)
[2020-10-28] MEDS: Sodium Chloride 0.9% 1,000 ML IV SCH (09:06)
[2020-10-28] MEDS: Bupropion 150 MG XL TAB PO SCH (10:48)
[2020-10-28] MEDS: Atorvastatin Calcium 40 MG TAB PO SCH (20:36)
[2020-10-28] MEDS: Aripiprazole 15 MG TAB PO SCH (20:36)
[2020-10-29] MEDS: MEROPENEM 1 GM/50 ML 1 GM in Premix Bag 1 BAG IVPB SCH ×2 (01:30→08:56)
[2020-10-29] MEDS: Levothyroxine Sodium 100 MCG TAB PO SCH (05:02)
[2020-10-29 06:22] LABS: #Basophils 0.1 thou/uL (0.0-0.2); #Eosinphils 0.1 thou/uL (0.0-0.7); #Lymphocytes 1.8 thou/uL (1.20-3.40); #Monocytes 0.3 thou/uL (0.11-0.59); #Neutrophils 4.3 thou/uL (1.40-6.50); %Basophils 1.2 % (0.0-1.0); %Eosinophils 2.2 % (0.0-10.0); %Lymphocytes 27.5 % (21.0-51.0); %Monocytes 4.7 % (0.0-10.0); %Neutrophils 64.4 % (42.0-75.0); Hemoglobin 12.1 g/dL (12.0-16.0); Mean Corpuscular HGB CONC 33.6 g/dL (32.0-36.0); Mean Corpuscular Hemoglobin 32.2 pg (27.0-31.0); Mean Corpuscular Volume 95.9 fL (78.0-98.0); Mean Platelet Volume 8.5 fL (7.4-10.4); Platelet Count 107 thou/uL (130-400); RBC Distribution Width 13.7 % (11.5-14.5); Red Blood Cell (RBC) Count 3.75 mill/uL (4.20-5.40); White Blood Cell (WBC) Count 6.7 thou/uL (4.8-10.8)
[2020-10-29 06:43] LABS: Anion Gap 15 mmol/L (10-20); BUN (Urea Nitrogen) 6 mg/dL (9.8-20.1); Calc. Creatinine Clearance 91 mL/min (70-130); Carbon Dioxide 23 mmol/L (22-29); Chloride 103 mmol/L (98-107); Potassium 3.4 mmol/L (3.5-5.1); Sodium 138 mmol/L (136-145)
[2020-10-29 06:44] LABS: Calcium 8.9 mg/dL (7.8-10.44); Glucose 92 mg/dL (70-105)
[2020-10-29] MEDS: Empagliflozin 25 MG TAB PO SCH (08:56)
[2020-10-29] MEDS: Bupropion 150 MG XL TAB PO SCH (08:56)
[2020-10-29] MEDS: Enoxaparin Sodium 30 MG/0.3 ML SYRINGE SC SCH (08:56)
[2020-10-29] MEDS: Lantus 1000 UNITS/10 ML VIAL SC SCH (08:57)
[2020-10-29] MEDS: NIFEdipine XL 30 MG TAB PO SCH (08:57)
[2020-10-29] MEDS: Aspirin Chewable 81 MG TAB PO SCH (08:57)
[2020-10-29] MEDS: Atorvastatin Calcium 40 MG TAB PO SCH (21:07)
[2020-10-29] MEDS: Aripiprazole 15 MG TAB PO SCH (21:08)
[2020-10-30] MEDS: Levothyroxine Sodium 100 MCG TAB PO SCH (05:25)
[2020-10-30] MEDS: Lantus 1000 UNITS/10 ML VIAL SC SCH (07:49)
[2020-10-30] MEDS: Aspirin Chewable 81 MG TAB PO SCH (07:50)
[2020-10-30] MEDS: Enoxaparin Sodium 30 MG/0.3 ML SYRINGE SC SCH (07:50)
[2020-10-30] MEDS: Empagliflozin 25 MG TAB PO SCH (07:50)
[2020-10-30] MEDS: NIFEdipine XL 30 MG TAB PO SCH (07:50)
[2020-10-30] MEDS: Bupropion 150 MG XL TAB PO SCH (07:53)
[2020-10-30 08:13] LABS: #Basophils 0.1 thou/uL (0.0-0.2); #Eosinphils 0.2 thou/uL (0.0-0.7); #Monocytes 0.3 thou/uL (0.11-0.59); #Neutrophils 6.1 thou/uL (1.40-6.50); %Basophils 0.7 % (0.0-1.0); %Eosinophils 2.8 % (0.0-10.0); %Lymphocytes 22.9 % (21.0-51.0); %Monocytes 3.1 % (0.0-10.0); %Neutrophils 70.6 % (42.0-75.0); Hemoglobin 12.7 g/dL (12.0-16.0); Mean Corpuscular HGB CONC 33.5 g/dL (32.0-36.0); Mean Corpuscular Hemoglobin 32.3 pg (27.0-31.0); Mean Corpuscular Volume 96.4 fL (78.0-98.0); Mean Platelet Volume 8.9 fL (7.4-10.4); Platelet Count 152 thou/uL (130-400); RBC Distribution Width 13.9 % (11.5-14.5); Red Blood Cell (RBC) Count 3.92 mill/uL (4.20-5.40); White Blood Cell (WBC) Count 8.7 thou/uL (4.8-10.8)
[2020-10-30 09:07] VITALS: BP 120/76; TEMP 97.8
== END 2020-10-30 10:19 | disposition home or self-care (01) | DRG 872 ==
LOC: ERS 21:29 → SURG A 10-24 01:17 → OBSVTOIN 10-24 17:26 → T4-A 10-27 23:19
PROVIDERS: ADMIT Specialist; ATTEND Specialist
DX: A41.9 Sepsis, unspecified organism (principal); N17.9 Acute kidney failure, unspecified; E87.2 Acidosis; F17.210 Nicotine dependence, cigarettes, uncomplicated; E86.0 Dehydration; E11.9 Type 2 diabetes mellitus without complications; E03.9 Hypothyroidism, unspecified; E78.5 Hyperlipidemia, unspecified; F31.9 Bipolar disorder, unspecified; E78.00 Pure hypercholesterolemia, unspecified; F98.8 Other specified behavioral and emotional disorders with onset usually occurring in childhood and adolescence; Z90.49 Acquired absence of other specified parts of digestive tract; Z79.82 Long term (current) use of aspirin; Z79.4 Long term (current) use of insulin; Z79.899 Other long term (current) drug therapy
CPT/HCPCS: 36415; 36416; 71046; 71275; 74176; 80048; 80053; 80061; 80202; 81003; 82805; 83036; 83605; 83690; 84443; 84484; 85025; 85610; 85730; 87040; 87086; 93005; 93010; 96365; 96372; 96375; 96376; G0378; J0692; J1650; J1815; J2185; J2405; J3370; J3490; Q9967; U0003; U0005